=== PATIENT | male | born 1950 | race Caucasian/White ===

== ENCOUNTER 2017-12-12 14:33 | Emergency (ER) | payer MEDICARE, OTHER ==
[2017-12-12] MEDS ORDERED: Ondansetron INJ* 2 MG/ML VIAL IV ONE (14:52)
[2017-12-12] MEDS ORDERED: NS 0.9% 1000 ML* 1,000 ML IV ONE (14:52)
--- NOTE | 2017-12-12 15:17 | RAD ---
Indication: Nausea. Coronary artery disease. Comparison: August 09, 2016 Technique: Upright AP 1505 hours Report: Clear lungs and pleural spaces. Negative for pneumothorax. The heart, pulmonary vasculature, and mediastinal contours are unremarkable. Unremarkable osseous structures and soft tissue contours. IMPRESSION: No evidence for acute intrathoracic disease.
[2017-12-12 15:21] LABS: ABS Basophils 0 10^3/ul (0-0.2); ABS Eosinophils 0.3 10^3/ul (0-0.6); ABS Lymphocytes 1.1 10^3/ul (1.0-4.8); ABS Monocytes 0.7 10^3/ul (0-0.8); ABS Nucleated RBC 0 10^3/ul; Eosinophil % 2.3 % (0-6); Hematocrit 50 % (42-52); Hemoglobin 17.1 g/dl (14.0-18.0); Lymphocyte % 9.6 % (25-47); Mean Corpuscular HGB Conc 34 g/dl (31-36); Mean Corpuscular Hemoglobin 31 pg (27-31); Mean Corpuscular Volume 91 fL (80-94); Mean Platelet Volume 9.1 um3 (7.4-10.4); Nucleated Red Blood Cells % 0; Platelet Count 145 10^3/ul (150-450); Red Blood Count 5.53 10^6/ul (4.0-5.4); Red Cell Distribution Width 15 % (10.5-15); White Blood Count 11.1 10^3/ul (3.5-10.8)
[2017-12-12 15:28] LABS: INR 1.01 (0.77-1.02)
[2017-12-12 15:37] LABS: EGFR Non-African American 60.6 (>60)
[2017-12-12 18:44] VITALS: BP 120/72
--- NOTE | 2017-12-12 20:26 | ED ---
Elizabeth Stephen Edward, scribed for Tesfaye Llanos on 12/12/17 at 1448 . Complex/Multi-Sys Presentation - HPI Summary HPI Summary: 67 y/o male presents to the ED c/o sudden onset N/V starting this morning, unalleviated by anything aggravated with PO intake. Denies fever. Pt vomited 2- 3x today. Pt also had several episodes of diarrhea today. PMHx WA 1.5 years ago. Yara CP and ABD pain. Pt reports sx are the same as when he had his WA. PMHx DM. - History Of Current Complaint Chief Complaint: EDNauseaVomitDiarrh Time Seen by Provider: 12/12/17 14:46 Hx Obtained From: Patient Onset/Duration: Sudden Onset, Lasting Hours Timing: Intermittent, Lasting: - N/V/D Aggravating Factor(s): Food - Allergies/Home Medications Allergies/Adverse Reactions: Allergies Allergy/AdvReac Type Severity Reaction Status Date / Time aspirin Allergy Unknown Verified 12/12/17 15:35 Reaction Details ibuprofen Allergy Unknown Verified 12/12/17 15:35 Reaction Details NSAIDS (Non-Steroidal Allergy Unknown Verified 12/12/17 15:35 Anti-Inflamma Reaction Details ramipril Allergy Dizziness Verified 12/12/17 15:35 Home Medications: Home Medications Carvedilol TAB* [Coreg TAB*] 12.5 mg PO BID AC 12/12/17 [History Confirmed 12/12] Fluorometholone 0.1% OPTH.CONNOR* [Fml 0.1% Opth.susp*] 1 drop BOTH EYES DAILY [History Confirmed 12/12/17] Insulin GLARGINE(*) [Lantus(*)] 26 units SUBCUT DAILY 12/12/17 [History Confirmed 12/12/17] Insulin LISPRO* [HumaLOG*] 0 - 20 units SUBCUT TID WITH MEALS 12/12/17 [History Confirmed 12/12/17] Liraglutide (NF) [Victoza (NF)] 1.8 mg SUBCUT DAILY 12/12/17 [History Confirmed 12/12/17] Losartan TAB* [Cozaar TAB*] 25 mg PO DAILY 12/12/17 [History Confirmed 12/12/17] Spironolactone TAB* [Aldactone TAB*] 25 mg PO DAILY 12/12/17 [History Confirmed 12/12/17] Ticagrelor* [Brilinta*] 90 mg PO BID 12/12/17 [History Confirmed 12/12/17] Timolol 0.5% OPTH.CATIA* [Timoptic 0.5% Opth*] 1 drop BOTH EYES DAILY 12/12/17 [ History Confirmed 12/12/17] metFORMIN* [Glucophage 500 MG TAB *] 500 mg PO BID 12/12/17 [History Confirmed 12/12/17] PMH/Surg Hx/FS Hx/Imm Hx Previously Healthy: No Endocrine/Hematology History: Reports: Hx Diabetes Cardiovascular History: Reports: Hx Hypertension, Hx Myocardial Infarction Sensory History: Reports: Hx Contacts or Glasses Opthamlomology History: Reports: Hx Contacts or Glasses - Cancer History Hx Chemotherapy: No Hx Radiation Therapy: No Infectious Disease History: No Infectious Disease History: Denies: Traveled Outside the [place] in Last 30 Days - Family History Known Family History: Positive: Unknown - Social History Alcohol Use: Rare Hx Substance Use: No Substance Use Type: Reports: None Smoking Status (MU): Unknown if Ever Smoked Review of Systems Constitutional: Negative Eyes: Negative ENT: Negative Cardiovascular: Negative Respiratory: Negative Positive: Vomiting, Diarrhea, Nausea. Negative: Abdominal Pain Genitourinary: Negative Musculoskeletal: Negative Skin: Negative Neurological: Negative Psychological: Normal All Other Systems Reviewed And Are Negative: Yes Physical Exam - Summary Physical Exam Summary: Appearance: Well appearing, no pain distress Skin: warm, dry, reflects adequate perfusion Head/face: normal Eyes: EOMI, LUCÍA ENT: normal Neck: supple, non-tender Respiratory: CTA, breath sounds present Cardiovascular: RRR, pulses symmetrical Abdomen: non-tender, soft Bowel: present Musculoskeletal: normal, strength/ROM intact Neuro: normal, sensory motor intact, A&Ox3 Triage Information Reviewed: Yes Vital Signs On Initial Exam: Initial Vitals Temp Pulse Resp BP Pulse Ox 96.9 F 94 19 144/78 97 12/12/17 14:36 12/12/17 14:36 12/12/17 14:36 12/12/17 14:36 12/12/17 14:36 Vital Signs Reviewed: Yes Diagnostics - Vital Signs Vital Signs Temp Pulse Resp BP Pulse Ox 12/12/17 14:36 96.9 F 94 19 144/78 97 - Laboratory Lab Results: Lab Results 12/12/17 12/12/17 12/12/17 Range/Units 15:10 15:10 15:10 WBC 11.1 H (3.5-10.8) 10^3/ul RBC 5.53 H (4.0-5.4) 10^6/ul Hgb 17.1 (14.0-18.0) g/dl Hct 50 (42-52) % MCV 91 (80-94) fL MCH 31 (27-31) pg MCHC 34 (31-36) g/dl RDW 15 (10.5-15) % Plt Count 145 L (150-450) 10^3/ul MPV 9.1 (7.4-10.4) um3 Neut % (Auto) 81.5 (38-83) % Lymph % (Auto) 9.6 L (25-47) % Harper % (Auto) 6.2 (0-7) % Eos % (Auto) 2.3 (0-6) % Baso % (Auto) 0.4 (0-2) % Absolute Neuts (auto) 9.0 H (1.5-7.7) 10^3/ul Absolute Lymphs (auto) 1.1 (1.0-4.8) 10^3/ul Absolute Monos (auto) 0.7 (0-0.8) 10^3/ul Absolute Eos (auto) 0.3 (0-0.6) 10^3/ul Absolute Basos (auto) 0 (0-0.2) 10^3/ul Absolute Nucleated RBC 0 10^3/ul Nucleated RBC % 0 INR (Anticoag Therapy) 1.01 (0.77-1.02) APTT 31.8 (26.0-36.3) seconds Sodium 136 (133-145) mmol/L Potassium 4.5 (3.5-5.0) mmol/L Chloride 107 (101-111) mmol/L Carbon Dioxide 21 L (22-32) mmol/L Anion Gap 8 (2-11) mmol/L BUN 24 (6-24) mg/dL Creatinine 1.20 H (0.67-1.17) mg/dL Est GFR ( Amer) 77.9 (>60) Est GFR (Non-Af Amer) 60.6 (>60) BUN/Creatinine Ratio 20.0 (8-20) Glucose 157 H (70-100) mg/dL Lactic Acid (0.5-2.0) mmol/L Calcium 9.3 (8.6-10.3) mg/dL Total Bilirubin 0.80 (0.2-1.0) mg/dL AST 19 (13-39) U/L ALT 27 (7-52) U/L Alkaline Phosphatase 78 (34-104) U/L Troponin I 0.00 (<0.04) ng/mL Total Protein 6.3 L (6.4-8.9) g/dL Albumin 3.7 (3.2-5.2) g/dL Globulin 2.6 (2-4) g/dL Albumin/Globulin Ratio 1.4 (1-3) Lipase 20 (11.0-82.0) U/L 12/12/17 12/12/17 Range/Units 15:10 17:40 WBC (3.5-10.8) 10^3/ul RBC (4.0-5.4) 10^6/ul Hgb (14.0-18.0) g/dl Hct (42-52) % MCV (80-94) fL MCH (27-31) pg MCHC (31-36) g/dl RDW (10.5-15) % Plt Count (150-450) 10^3/ul MPV (7.4-10.4) um3 Neut % (Auto) (38-83) % Lymph % (Auto) (25-47) % Harper % (Auto) (0-7) % Eos % (Auto) (0-6) % Baso % (Auto) (0-2) % Absolute Neuts (auto) (1.5-7.7) 10^3/ul Absolute Lymphs (auto) (1.0-4.8) 10^3/ul Absolute Monos (auto) (0-0.8) 10^3/ul Absolute Eos (auto) (0-0.6) 10^3/ul Absolute Basos (auto) (0-0.2) 10^3/ul Absolute Nucleated RBC 10^3/ul Nucleated RBC % INR (Anticoag Therapy) (0.77-1.02) APTT (26.0-36.3) seconds Sodium (133-145) mmol/L Potassium (3.5-5.0) mmol/L Chloride (101-111) mmol/L Carbon Dioxide (22-32) mmol/L Anion Gap (2-11) mmol/L BUN (6-24) mg/dL Creatinine (0.67-1.17) mg/dL Est GFR ( Amer) (>60) Est GFR (Non-Af Amer) (>60) BUN/Creatinine Ratio (8-20) Glucose (70-100) mg/dL Lactic Acid 0.8 (0.5-2.0) mmol/L Calcium (8.6-10.3) mg/dL Total Bilirubin (0.2-1.0) mg/dL AST (13-39) U/L ALT (7-52) U/L Alkaline Phosphatase (34-104) U/L Troponin I 0.00 (<0.04) ng/mL Total Protein (6.4-8.9) g/dL Albumin (3.2-5.2) g/dL Globulin (2-4) g/dL Albumin/Globulin Ratio (1-3) Lipase (11.0-82.0) U/L Result Diagrams: 12/12/17 15:10 12/12/17 15:10 Lab Statement: Any lab studies that have been ordered have been reviewed, and results considered in the medical decision making process. - Radiology CXR Xray Interpretation: No Acute Changes - No evidence for acute intrathoracic disease Radiology Interpretation Completed By: Radiologist - EKG 1 EKG Interpretation: 14:53 - SR @ 90 BPM. No acute changes Complex Multi-Symp Course/Dx Assessment/Plan: 67 y/o male presents to the ED c/o sudden onset N/V starting this morning, unalleviated by anything aggravated with PO intake. Denies fever. Pt vomited 2-3x today. Pt also had several episodes of diarrhea today. PMHx WA 1.5 years ago. Yara CP and ABD pain. Pt reports sx are the same as when he had his WA. PMHx DM. EKG - 14:53 - SR @ 90 BPM. No acute changes. CXR shows no evidence for acute introthoracic disease. Pt will be d/c home with f/u with PCP. - Diagnoses Differential Diagnoses/HQI/PQRI: Other - gasteroenteritis/vomiting/diarrhoea Provider Diagnoses: Gastroenteritis Discharge - Sign-Out/Discharge Documenting (check all that apply): Discharge - Discharge Plan Condition: Stable Disposition: HOME Prescriptions: Ondansetron HCl [Zofran] 4 mg PO TID #20 tablet MDD 3 Patient Education Materials: Gastroenteritis (ED) Referrals: Claudio Leyva MD [Primary Care Provider] - 4 Days (PLEASE F/U IN 3-5 DAYS) Additional Instructions: RETURN TO THE ED FOR CHANGING OR WORSENING SYMPTOMS - Billing Disposition and Condition Condition: STABLE Disposition: HOME The documentation as recorded by the Elizabeth west Edward accurately reflects the service I personally performed and the decisions made by , Tesfaye Llanos.
== END 2017-12-12 18:55 | disposition home or self-care (01) ==
LOC: ED 14:33
DX: K52.9 Noninfective gastroenteritis and colitis, unspecified (principal); E11.9 Type 2 diabetes mellitus without complications; Z79.4 Long term (current) use of insulin; Z79.84 Long term (current) use of oral hypoglycemic drugs; I25.2 Old myocardial infarction; I10 Essential (primary) hypertension; Z88.6 Allergy status to analgesic agent; Z88.8 Allergy status to other drugs, medicaments and biological substances
CPT/HCPCS: 36415; 71045; 80053; 83605; 83690; 84484; 85025; 85610; 85730; 93005; 96374; 99283; J2405

== ENCOUNTER 2019-08-10 07:10 | Observation (INO) | payer MEDICARE ==
--- NOTE | 2019-08-10 07:21 | ED ---
Complex/Multi-Sys Presentation - HPI Summary HPI Summary: This patient is a 69 year old M presenting [place] [facility] accompanied by his with a chief complaint of vomiting and diarrhea since 2 hours ago. Pt states the symptoms woke him up. Per , pt vomited for a few days 3 years ago when he had an TX. Pt also notes he vomited 5 days ago when he went hunting. The patient rates the pain 0/10 in severity. Symptoms aggravated by nothing. Symptoms alleviated by nothing. Patient reports diaphoresis. Pt denies any fever , chills, erythema of eyes, sore throat, CP, SOB, cough, abdominal pain, dysuria , hematuria, myalgia, edema, rash, jaw pain, arm pain, difficulty breathing, or dizziness. Pt has diabetes. He is taking his heart medications. He sleeps with 2 pillows and has not had any changes in his weight. - History Of Current Complaint Chief Complaint: EDNauseaVomitDiarrh Time Seen by Provider: 08/10/19 07:15 Hx Obtained From: Patient, Family/Claims Examiner - Onset/Duration: Sudden Onset, Lasting Hours - 2, Still Present Timing: Constant Severity Currently: Moderate Severity Initially: Moderate Aggravating Factor(s): nothing Alleviating Factor(s): nothing Associated Signs And Symptoms: Positive: Nausea, Vomiting, Diarrhea, Diaphoresis , Other - negative - any chills, erythema of eyes, sore throat, abdominal pain, dysuria, hematuria, myalgia, edema, rash, jaw pain, arm pain, difficulty breathing, or dizziness.. Negative: SOB, Cough, Chest Pain, Fever - Allergies/Home Medications Allergies/Adverse Reactions: Allergies Allergy/AdvReac Type Severity Reaction Status Date / Time aspirin Allergy Shortness Verified 08/10/19 07:19 of Breath ibuprofen Allergy Shortness Verified 08/10/19 07:19 of Breath NSAIDS (Non-Steroidal Allergy Shortness Verified 08/10/19 07:19 Anti-Inflamma of Breath ramipril Allergy Dizziness Verified 08/10/19 07:19 Home Medications: Home Medications Epleronone (NF) [Inspra (NF)] 25 mg PO DAILY 08/10/19 [History Confirmed ] Insulin ASPART (NF) [Novolog (NF)] 0 units SUBCUT .SLIDING SCALE 08/10/19 [ History Confirmed 08/10/19] Insulin Glargine,Hum.rec.anlog [Rob Montgomery] 20 unit SUBCUT BEDTIME [History Confirmed 08/10/19] PMH/Surg Hx/FS Hx/Imm Hx Previously Healthy: No Endocrine/Hematology History: Reports: Hx Diabetes Cardiovascular History: Reports: Hx Hypertension, Hx Myocardial Infarction Sensory History: Reports: Hx Contacts or Glasses Opthamlomology History: Reports: Hx Contacts or Glasses - Cancer History Hx Chemotherapy: No Hx Radiation Therapy: No - Surgical History Surgical History: None Infectious Disease History: No Infectious Disease History: Denies: Traveled Outside the [place] in Last 30 Days - Family History Known Family History: Positive: Unknown - Social History Alcohol Use: None Hx Substance Use: No Substance Use Type: Reports: None Smoking Status (MU): Former Smoker Review of Systems Positive: Skin Diaphoresis. Negative: Fever, Chills Negative: Erythema Negative: Sore Throat Negative: Chest Pain Respiratory: Other - negative - difficulty breathing Negative: Shortness Of Breath, Cough Positive: Vomiting, Diarrhea, Nausea. Negative: Abdominal Pain Negative: dysuria, hematuria Musculoskeletal: Other - negative - jaw pain, arm pain Negative: Myalgia, Edema Negative: Rash Neurological: Other - negative - dizziness All Other Systems Reviewed And Are Negative: Yes Physical Exam - Summary Physical Exam Summary: Constitutional: Well-developed, Well-nourished, Alert. (-) Distressed Skin: Warm, Dry HENT: Normocephalic; Atraumatic Eyes: Conjunctiva normal Neck: Musculoskeletal ROM normal neck. (-) JVD, (-) Stridor, (-) Tracheal deviation Cardio: Rhythm regular, rate normal, Heart sounds normal; Intact distal pulses; The pedal pulses are 2+ and symmetric. Radial pulses are 2+ and symmetric. (-) Murmur Pulmonary/Chest wall: Effort normal. (-) Respiratory distress, (-) Wheezes, (-) Rales Abd: Soft, (-) tenderness, (-) Distension, (-) Guarding, (-) Rebound Musculoskeletal: (-) Edema Lymph: (-) Cervical adenopathy Neuro: Alert, Oriented x3 Psych: Mood and affect Normal Triage Information Reviewed: Yes Vital Signs On Initial Exam: Initial Vitals Temp Pulse Resp BP Pulse Ox 97 F 77 18 123/72 100 08/10/19 07:15 11/21/19 07:15 08/10/19 07:15 08/10/19 07:15 08/10/19 07:15 Vital Signs Reviewed: Yes Procedures - Sedation Patient Received Moderate/Deep Sedation with Procedure: No Diagnostics - Vital Signs Vital Signs Temp Pulse Resp BP Pulse Ox 08/10/19 07:15 97 F 77 18 123/72 100 - Laboratory Result Diagrams: 08/10/19 08:02 08/10/19 08:02 Lab Statement: Any lab studies that have been ordered have been reviewed, and results considered in the medical decision making process. - EKG 724 Cardiac Rate: NL - 79 BPM EKG Rhythm: Sinus Rhythm Summary of EKG Findings: EKG at 724 shows 79 BPM, sinus rhythm, no STEMI Complex Multi-Symp Course/Dx Course Of Treatment: This patient is a 69 year old M presenting to [facility] accompanied by his with a chief complaint of vomiting and diarrhea since 2 hours ago. Pt states the symptoms woke him up. Per , pt vomited for a few days 3 years ago when he had an TX. Pt also notes he vomited 5 days ago when he went hunting. The patient rates the pain 0/10 in severity. Symptoms aggravated by nothing. Symptoms alleviated by nothing. Patient reports diaphoresis. Pt denies any fever, chills, erythema of eyes, sore throat, CP, SOB, cough, abdominal pain, dysuria, hematuria, myalgia, edema, rash, jaw pain, arm pain, difficulty breathing, or dizziness. Pt has diabetes. He is taking his heart medications. He sleeps with 2 pillows and has not had any changes in his weight. Physical exam shows no remarkable findings. Lab results show Hgb 13.4 , MCV 79, MCH 25, RDW 18, absolute lymphs 0.5, BUN 29, creatinine 1.45, glucose 159, alkaline phosphatase 108, total protein 6. EKG at 724 shows 79 BPM, sinus rhythm, no STEMI. At 921, Dr. Kennedy agrees to consult pt. There is concern with known CAD along with similar symptoms, previous TX which have been episodic that this can be an equivalent. - Diagnoses Provider Diagnoses: Vomiting, Diarrhea, CAD (coronary artery disease) - Physician Notifications Discussed Care Of Patient With: Jimena Kennedy Time Discussed With Above Provider: 09:22 Instructed by Provider To: Other - Dr. Kennedy agrees to consult pt. Discharge ED - Sign-Out/Discharge Documenting (check all that apply): Patient Departure - admit - Discharge Plan Condition: Stable Disposition: ADMITTED TO [facility] - Attestation Statements Document Initiated by Scribe: Yes Documenting Scribe: Harrison Shin Provider For Whom Scribe is Documenting (Include Credential): Dr. Stewart aPndya MD Scribe Attestation: IHarrison, scribed for Dr. Stewart Pandya MD on 08/10/19 at 1101. Status of Scribe Document: Ready
--- OUTSIDE RECORDS SUMMARY | 2019-08-10 07:36 | XMS REPORT | Continuity of Care Document ---
:1950 External Reference #:[id number] Author Name John Farley M.D. Address [address] [place] [address] Care Team Providers Name Role Phone Claudio Leyva M.D. - Internal Care Team Information Medical Billing Coordinator Medicine Nika Linton M.D. - Care Team Information Medical Billing Coordinator [phone] Dermatology Manuel Stiles M.D. - Care Team Information Medical Billing Coordinator [phone] Endocrinology, Diabetes & Metabolism Stephon Dumont M.D. - Care Team Information Medical Billing Coordinator [phone] Cardiovascular Disease John Blanc M.D. - Care Team Information Medical Billing Coordinator [phone] Ophthalmology Tomer Corona M.D. - Care Team Information Medical Billing Coordinator [phone] Ophthalmology Problems Active Problems Provider Date Type 2 diabetes mellitus Onset: Essential hypertension Onset: Epiretinal membrane John Farley M.D. Onset: 10/29/2015 Corneal endothelial dystrophy John Farley M.D. Onset: 10/29/2015 Type 2 diabetes mellitus with mild John Farley M.D. Onset: 10/29/2015 nonproliferative diabetic retinopathy without macular edema Presence of intraocular lens John Farley M.D. 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 Onset: 03/08/2017 Type 2 diabetes mellitus with mild John Farley M.D. Onset: 11/07/2018 nonproliferative diabetic retinopathy without macular edema, bilateral Corneal transplant John Farley M.D. Onset: 10/14/2017 Social History Type Date Description Comments Sex Unknown ETOH Use Occasionally consumes alcohol Tobacco Use Start: Unknown Patient has never smoked Recreational Drug Use Never Used Drugs Smoking Status Reviewed: 07/31/19 Patient has never smoked Allergies, Adverse Reactions, Alerts Active Allergies Reaction Severity Comments Date Aspirin 10/29/2015 NSAIDs 10/29/2015 Inactive Allergies NKDA 10/23/2015 Medications Active Medications SIG Qnty Indications Ordering Date Provider Fluorometholone 1 Drop Both 1units John Farley, 04/28/2018 0.1% Eyes Once A Day M.D. Suspension Timolol Maleate instill 1 drop 10units H40.53x1 John Farley, 2016 0.5% into both eyes M.D. Solution once daily Atorvastatin Calcium Unknown 80mg Tablets Colchicine Unknown 0.6mg Tablets Brilinta Unknown 90mg Tablets Carvedilol Unknown 12.5mg Tablets Losartan Potassium Unknown 25mg Tablets Metformin HCL twice daily Unknown 500mg Tablets Victoza Unknown 18mg/3ML Solution Pen-Inject Novolog Flexpen Unknown 100Unit/ML Solution Pen-Inject Eplerenone Unknown 25mg Tablets Basaglar Kwikpen Unknown 100Unit/ML Solution Pen-Inject Testosterone Unknown 1.62% Gel Immunizations Description No Information Available Vital Signs Description No Information Available Results Description No Information Available Procedures Description No Information Available Medical Devices Description No Information Available Encounters Description No Information Available Assessments Date Code Description Provider 07/31/2019 H40.53x1 Glaucoma secondary to other eye disorders, John Farley M.D. bilateral, mild s 07/31/2019 E11.3293 Type 2 diabetes mellitus with mild John Farley M.D. nonproliferative diabetic 07/31/2019 H35.371 Puckering of macula, right eye John Farley M.D. 07/31/2019 H18.51 Endothelial corneal dystrophy John Farley M.D. Plan of Treatment 07/31/2019 - John Farley M.D.H40.53x1 Glaucoma secondary to other eye disorders, bilateral, mild sComments:Smoking can increase the risk of developing or worsening any eye related disease, as well as affect your overall health. If you are a smoker, we strongly recommend that you quit.If you are not a smoker, we strongly recommend that you do not start.Follow up:6 Month Follow Up DFE/IOP OCT MAC You can expect to have your eyes dilated at your next visit. If Dr. Farley orders any additional testing, it may require extra time. We recommend that you bring sunglasses, as dilation drops often make you light sensitive until they wear off. We always recommend you bring someone to drive you home if you are uncomfortable driving with your eyes dilated. If you have any questions before your next visit, feel free to call our office at .[id number] Type 2 diabetes mellitus with mild nonproliferative diabeticComments:I can detect diabetic changes in your eyes. Proper control of your diabetes is important for the health of your eyes. It is important that you keep all of your follow up appointments. Dr. Farley has sent a report to your primary care doctor, letting them know the current status of your retina.H35.371 Puckering of macula, right eyeComments:A Macular Pucker is a wrinkling of the retina tissue. It can cause distortion in your vision. Pleasecontact the office if you notice any changes or new distortion in your vision.H18.51 Endothelial corneal dystrophy Functional Status Description No Information Available Mental Status Description No Information Available Referrals Description No Information Available
[2019-08-10 08:11] LABS: ABS Eosinophils 0.1 10^3/ul (0-0.6); ABS Lymphocytes 0.5 10^3/ul (1.0-4.8); ABS Monocytes 0.3 10^3/ul (0-0.8); ABS Neutrophils 4.4 10^3/ul (1.5-7.7); Eosinophil % 1.8 %; Hematocrit 42 % (42-52); Hemoglobin 13.4 g/dL (14.0-18.0); Lymphocyte % 9.6 %; Mean Corpuscular HGB Conc 32 g/dL (31-36); Mean Corpuscular Hemoglobin 25 pg (27-31); Mean Corpuscular Volume 79 fL (80-94); Platelet Count 172 10^3/uL (150-450); Red Blood Count 5.32 10^6 /uL (4.18-5.48); Red Cell Distribution Width 18 % (10-15); White Blood Count 5.4 10^3/uL (3.5-10.8)
[2019-08-10 08:28] LABS: Albumin 3.3 g/dL (3.2-5.2); Albumin/Globulin Ratio 1.2 (1-3); Calcium 8.9 mg/dL (8.6-10.3); EGFR African American 58.6 (>60); EGFR Non-African American 48.4 (>60); Globulin 2.7 g/dL (2-4); Potassium 4.3 mmol/L (3.5-5.0); Total Bilirubin 0.5 mg/dL (0.2-1.0)
[2019-08-10 08:29] LABS: Troponin I 0.01 ng/mL (<0.03)
[2019-08-10] MEDS ORDERED: Ondansetron INJ* 2 MG/ML VIAL IV ONE (09:44)
[2019-08-10] MEDS ORDERED: NS 0.9% 1000 ML** 1,000 ML IV ONE (09:58)
[2019-08-10] MEDS ORDERED: Ondansetron INJ* 2 MG/ML VIAL IV PRN (10:07)
[2019-08-10] MEDS ORDERED: Dextrose 50% VIAL 50 ml IV PUSH PRN (10:34)
[2019-08-10] MEDS ORDERED: NS 0.9% 1000 ML** 1,000 ML IV SCH (10:45)
--- NOTE | 2019-08-10 12:28 | HP ---
CC: Dr. Leyva; Dr. Farley from Endocrinology; Dr. Dumont, Cardiology * HISTORY AND PHYSICAL: DATE OF ADMISSION: 08/10/19 PRIMARY CARE PROVIDER: Dr. Leyva CHIEF COMPLAINT: Nausea, vomiting, diarrhea. HISTORY OF PRESENT ILLNESS: Mr. Perea is a 69-year-old male with history of ID in 2016, which was diagnosed during admission for nausea, vomiting, and diarrhea at that point. Today at 5:30 in the morning, he woke up, he was nauseated. He started throwing up and he stated he threw up continuously for approximately half an hour. At the same time, he was on the toilet seat having profuse diarrhea at the same time. He denied any abdominal pain, chest pain, or shortness of breath. He came into the ED for evaluation due to that his brother just had a heart attack with a bypass at the age of 72 three weeks ago and he is concerned for similar presentation in 2016. Here, he had an EKG that shows no acute changes and his troponin is negative. Nevertheless, he is going to placed on overnight observation with the diagnosis of nausea, vomiting, for dehydration, on telemetry. We are going to back to monitor his cardiac status. PAST MEDICAL HISTORY: 1. History of non-ST elevation ID during an evaluation for nausea, vomiting, and diarrhea in 2016. The patient had a stent placed at our facility in the right PDA, was transferred to [facility] right after this hospital stay and received 2 further stents into LAD and diagonal that was in 2016. 2. History of dyslipidemia. 3. History of congenital hip deformity. 4. BPH. 5. Diabetes type 2, monitored at [facility]. 6. Hypertension. 7. Hernia repair in 1977. 8. History of left elbow surgery in 2001. 9. 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 10. Cataract surgery bilaterally. 11. History of gynecomastia when on Aldactone that was discontinued recently. 12. History of low testosterone level. MEDICATIONS: At home include: 1. Insulin NovoLog sliding scale. 2. Insulin Basaglar 18 units at bedtime. 3. Inspra 25 mg daily. 4. Metformin 500 mg b.i.d. 5. Timolol eye drops 1 drop both eyes daily. 6. Brilinta 90 mg b.i.d. 7. Losartan 25 mg daily. 8. Victoza 1.8 mg subcutaneously daily. 9. Fluorometholone eye drops 1 drop both eyes daily. 10. Colchicine 0.6 mg daily p.r.n. 11. Coreg 12.5 mg b.i.d. 12. Atorvastatin 80 mg daily. The patient was also transfused and started on AndroGel 1 tab daily and thus 1.62% ALLERGIES: Include to ASPIRIN, which causes difficulty breathing and swelling, IBUPROFEN, NONSTEROIDAL ANTIINFLAMMATORY MEDICATIONS, as well as RAMIPRIL, it cause dizziness. FAMILY HISTORY: Positive for mother who has a history of hypothyroidism and of ID at the age of 93. Father who had a history of diabetes with renal failure, subsequently in his 80s while on dialysis. The patient's 4 out of 5 siblings of diabetes. One of his brothers just had a bypass grafting performed 3 weeks ago, his brother is 73 years old now. SOCIAL HISTORY: The patient denies any tobacco, alcohol, or drug use. He is a retired, lives with his who is his surrogate. REVIEW OF SYSTEMS: Please see history of present illness. In addition, at the time of admission, the patient's mentioned that the patient has a very good physical activity and walks with a dog 4 miles a couple of times a week and he has done so a couple of days ago without any problems. He had an episode of nausea when he felt "clammy when he was hunting in the morning 1 week ago." At that point, the patient stated he did not check his glucose levels, but he tried to eat and that made him more nauseated. He stated that resolved spontaneously and no nausea recorded until today in the morning. The patient denies any chest pain. Denies any abdominal pain or shortness of breath. All the remaining 12 systems were reviewed with the patient and are otherwise negative. PHYSICAL EXAMINATION GENERAL: The patient is a pleasant 69-year-old male, who is in no acute distress. The patient is alert and oriented x 3. VITAL SIGNS: Blood pressure 113/77, heart rate of 95 and regular, respiratory rate 25, oxygen saturation 90% on room air, temperature 97.9. HEENT: Head: Atraumatic, normocephalic. Eyes: Pupils are equal, reactive to light and accommodation. Oropharynx clear. Mucosa moist. NECK: Supple. No JVD, no bruits bilaterally. RESPIRATORY: Clear to auscultation bilaterally. CARDIOVASCULAR: Regular rate and rhythm. No murmur. ABDOMEN: Soft, nontender. Bowel sounds are present in all 4 quadrants. EXTREMITIES: There is no edema. Pulses are +2 bilaterally. No clubbing or cyanosis. NEUROLOGIC: On neuro evaluation, speech is clear. Cranial nerves II through XII grossly intact. Motor strength is 5/5 bilaterally. SKIN: On evaluation of the patient's skin, no ecchymotic areas or rashes noted. PSYCHIATRIC EVALUATION: Pleasant and cooperative with evaluation. Oriented x3. No evidence of anxiety or depression. DIAGNOSTIC STUDIES/LAB DATA: Laboratory data, sodium of 138, potassium 4.3, chloride 108, carbon dioxide 23, BUN 29, creatinine 1.45. Liver function is unremarkable, possible mild elevation of alkaline phosphatase of 108. Lactic acid of 0.9, troponin of 0.01. White blood cell count 5.4, hemoglobin 13.4, hematocrit 42, MCV 79, and platelets 172. The patient's EKG showed sinus rhythm with heart rate of 79 beats per minute with no significant ST changes. EKG from 2018 was similar. ASSESSMENT AND PLAN: 1. Nausea, vomiting, diarrhea. Likely due to viral gastroenteritis. The patient reports no sick contacts that he is aware. He is to be placed on gentle hydration observed overnight. I will place him on telemetry monitoring bed due to his history of myocardial infarction in 2016 with similar presentation. The patient was offered a cardiac stress test, but at this point he is not feeling well enough to undergo a cardiac stress. In addition to that it seems that if he has EKG changes, chest pain, or positive troponins that would indicate a positive stress test in this situation. The patient is interested in outpatient cardiac stress test with Dr. Dumont. 2. In regard to the patient's diabetes management, metformin is going to be held as well as Victoza. The patient is going to be placed on insulin sliding scale and his long-lasting insulin is going to be lower to 10 units daily until his diet is more advanced. 3. For history of coronary artery disease. So far his troponins had been negative. We will continue to observe him on cardiac monitor bed with followup troponins. His Brilinta is going to be continued. 4. For DVT prophylaxis, the patient is going to be placed on heparin subcutaneously. 5. For hypertension, losartan is going to be continued. 6. The patient's code status is full. His surrogate is his . TIME SPENT: Approximately 65 minutes was spent on admission of this patient, more than half that time was spent [id number] with the patient during the interview and physical exam. [id number]/[facility] #: [id number] KALI
[2019-08-10] MEDS: Insulin LISPRO* 1 UNITS UNIT SUBCUT SCH ×3 (13:58→21:56)
[2019-08-10] MEDS: Heparin VIAL(*) 5000 UNITS/ML VIAL (FIVE THOUSAND) SUBCUT SCH ×2 (14:50→21:55)
[2019-08-10] MEDS: Carvedilol TAB* 6.25 MG PO SCH (15:50)
[2019-08-10] MEDS ORDERED: Insulin GLARGINE(*) 1 UNITS UNIT SUBCUT SCH (21:00)
[2019-08-10] MEDS: Ticagrelor* 90 MG TAB PO SCH (21:55)
[2019-08-11] MEDS: Heparin VIAL(*) 5000 UNITS/ML VIAL (FIVE THOUSAND) SUBCUT SCH (05:16)
[2019-08-11 06:38] LABS: BUN/Creatinine Ratio 19.6 (8-20); Calcium 8.3 mg/dL (8.6-10.3); EGFR Non-African American 51.2 (>60); Potassium 4.1 mmol/L (3.5-5.0)
[2019-08-11] MEDS ORDERED: Atorvastatin* 80 MG TAB PO SCH (09:00)
[2019-08-11] MEDS ORDERED: Losartan TAB* 25 MG PO SCH (09:00)
[2019-08-11] MEDS ORDERED: Fluorometholone 0.1% OPTH.SUS* 5 ML BTL BOTH EYES SCH (09:00)
[2019-08-11] MEDS ORDERED: Timolol 0.5% OPTH.SOL* BTL BOTH EYES SCH (09:00)
[2019-08-11 09:57] VITALS: BP 130/59
[2019-08-11] MEDS: Ticagrelor* 90 MG TAB PO SCH (10:16)
[2019-08-11] MEDS: Insulin LISPRO* 1 UNITS UNIT SUBCUT SCH (10:16)
[2019-08-11] MEDS: Carvedilol TAB* 6.25 MG PO SCH (10:17)
--- NOTE | 2019-08-11 10:26 | DS ---
CC: Dr. Leyva * DISCHARGE SUMMARY: DATE OF ADMISSION: 08/10/19 DATE OF DISCHARGE: 08/11/19 PRIMARY CARE PROVIDER: Dr. Leyva. CONDITION ON DISCHARGE: Stable. DISPOSITION AT DISCHARGE: To home. DISCHARGE DIAGNOSIS: Acute nausea, vomiting, and diarrhea, likely related to viral gastroenteritis and subsequent dehydration with increased creatinine level that is improving. SECONDARY DIAGNOSES: 1. History of diabetes type 2, insulin-dependent. 2. Coronary artery disease, status post 3 stents in 2016. 3. Dyslipidemia. 4. Hypertension. 5. History of low testosterone level. 6. 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 MEDICATIONS AT DISCHARGE: Unchanged from admission, include: 1. Insulin NovoLog sliding scale. 2. Insulin Basaglar 18 units at bedtime. 3. Inspra 25 mg daily. 4. Metformin 500 mg b.i.d. 5. Timolol eye drops 1 drop both eyes daily. 6. Brilinta 90 mg b.i.d. 7. Losartan 25 mg daily. 8. Victoza 1.8 mg subcutaneously daily. 9. Fluorometholone eyedrops 1 drop both eyes daily. 10. Colchicine 0.6 mg daily p.r.n. 11. Coreg 12.5 mg b.i.d. 12. Atorvastatin 80 mg daily. LABORATORY DATA AND STUDIES PERFORMED DURING THE HOSPITAL STAY: On 08/09/19, sodium of 138, potassium 4.1, chloride 110, carbon dioxide 25, BUN 27, creatinine 1.38. Troponins throughout patient's hospital stay ranged between 0.01 to 0.0. HOSPITALIZATION COURSE: Berry Sneed is a 69-year-old male with history of coronary artery disease and non-ST elevation myocardial infarction that was diagnosed during the episodes of nausea and vomiting and diarrhea in 2016. Due to that, when he developed nausea vomiting on 08/10/19, he was concerned about his cardiac status when he came into the ED for evaluation. The patient complains of no chest pain or shortness of breath, but he was markedly dehydrated with elevation of creatinine level. He was placed on overnight observation on intravenous fluid. His troponins continued to be followed throughout his hospital stay and he was on telemetry monitored bed. His troponins were negative throughout his hospital stay and the patient was asymptomatic from cardiac standpoint. His nausea, vomiting, and diarrhea resolved during his hospital stay. By the afternoon of the day of admission, the patient was able to tolerate diet. He is going to be discharged today with recommendation to follow up with his primary care provider in approximately 4 to 7 days. The patient is also recommended to follow up with Dr. Dumont as previously scheduled and discuss with him possibility of cardiac stress test in the near future. PHYSICAL EXAM AT THE TIME OF DISCHARGE: Blood pressure of 116/59, heart rate of 71 and regular, respiratory rate 18, oxygen saturation 97% on room air, temperature 97.6. General: The patient is a pleasant 69-year-old male who is in no acute distress. Alert and oriented x3. HEENT: Head atraumatic and normocephalic. Eyes: Pupils are equal and reactive to light and accommodation. Oropharynx clear, mucosa moist. Neck: Supple. No JVD. No bruit bilaterally. Cardiovascular: Regular rate and rhythm. No murmur. Respiratory : Clear to auscultation bilaterally. Abdomen: Soft and nontender. Bowel sounds are present in all 4 quadrants. Extremities: No edema. Pulses are +2 bilaterally. No clubbing or cyanosis. Neuro Evaluation: Speech is clear. Cranial nerves II through XII intact. Motor strength is 5/5 bilaterally. Please note that this is a short summary of the patient's hospital stay. Please refer to further medical records for details. TIME SPENT: Approximately 32 minutes were spent on this patient's discharge. [id number]/[facility] #: [id number] [facility]OS[facility]ITALFrederikc
== END 2019-08-11 11:14 | disposition home or self-care (01) ==
LOC: ED 07:10 → MEDTELE 09:58
PROVIDERS: ADMIT Internal Medicine; ATTEND Internal Medicine
DX: R11.2 Nausea with vomiting, unspecified (principal); R19.7 Diarrhea, unspecified; E11.9 Type 2 diabetes mellitus without complications; Z79.4 Long term (current) use of insulin; I25.10 Atherosclerotic heart disease of native coronary artery without angina pectoris; Z95.5 Presence of coronary angioplasty implant and graft; E78.5 Hyperlipidemia, unspecified; I10 Essential (primary) hypertension; E27.40 Unspecified adrenocortical insufficiency; Z79.899 Other long term (current) drug therapy; N40.0 Benign prostatic hyperplasia without lower urinary tract symptoms; I25.2 Old myocardial infarction; Z87.891 Personal history of nicotine dependence
CPT/HCPCS: 36415; 80048; 80053; 83605; 84484; 85025; 93005; 96361; 96372; 96374; 99283; A9270-GY; G0378; J1644; J2405